=== PATIENT | female | born 1985 | race Two or more races ===

== ENCOUNTER 2019-03-03 22:56 | Emergency (ER) | payer OTHER ==
[~2019-03-03] VITALS: Ht 157.5 cm; Wt 86.2 kg
[2019-03-03 23:00] VITALS: BP 118/80
== END 2019-03-04 02:21 | disposition left against medical advice (07) ==
LOC: EDBD 22:56 → ER 23:01
DX: R07.89 Other chest pain (principal); R06.02 Shortness of breath; R00.2 Palpitations; Z53.21 Procedure and treatment not carried out due to patient leaving prior to being seen by health care provider
CPT/HCPCS: 93005